=== PATIENT | male | born 1940 | race Caucasian/White ===

== ENCOUNTER 2016-12-14 15:43 | Outpatient (CLI) | payer MEDICARE ==
--- NOTE | 2016-12-14 17:21 | RAD ---
RIGHT ANKLE 3 VIEWS: Date: 12/14/16 HISTORY: Swelling right ankle. FINDINGS/IMPRESSION: No acute fracture, dislocation, or bony destruction seen. Degenerative changes present. A well corti cated density adjacent to the lateral malleolus may represent an old injury. POS: [facility]
== END 2016-12-14 15:44 | disposition home or self-care (01) ==
LOC: MADLABBHPM 15:43
PROVIDERS: ATTEND Family Medicine
DX: M25.571 Pain in right ankle and joints of right foot (principal)
CPT/HCPCS: 36415; 84550; 85652

== ENCOUNTER 2016-12-18 08:07 | Outpatient (CLI) | payer MEDICARE ==
[2016-12-18 09:07] LABS: ALT (SGPT) 22 U/L (0-55); AST (SGOT) 25 U/L (5-34); Albumin 3.8 g/dL (3.4-4.8); Alkaline Phosphatase 64 U/L (40-150); Anion Gap 14 mmol/L (10-20); BUN (Urea Nitrogen) 21 mg/dL (8.4-25.7); Bilirubin, Direct 0.2 mg/dL (0.1-0.3); Bilirubin, Total 0.4 mg/dL (0.2-1.2); Calc. Creatinine Clearance 0 mL/min (70-130); Calcium 9.1 mg/dL (7.8-10.44); Carbon Dioxide 21 mmol/L (23-31); Cardiac Risk 2.5 (Less than 4.5); Chloride 107 mmol/L (98-107); Cholesterol 126 mg/dL (< 200 Desired); Estimated GFR-MDRD 89; Glucose 88 mg/dL (83-110); HDL Cholesterol 51 mg/dL (>60 Neg Risk); LDL Cholesterol, Calculated 69 mg/dL; Protein, Total 6.6 g/dL (5.8-8.1); Sodium 138 mmol/L (136-145); Triglycerides 30 mg/dL (Less than 150)
[2016-12-18 09:40] LABS: #Monocytes 1.7 thou/uL (0.11-0.59); #Neutrophils 8.1 thou/uL (1.40-6.50); %Basophils 1.3 % (0.0-1.0); %Eosinophils 2.4 % (0.0-10.0); %Lymphocytes 27.9 % (21.0-51.0); %Monocytes 12.1 % (0.0-10.0); %Neutrophils 86.3 % (42.0-75.0); Hemoglobin 14.9 g/dL (14.0-18.0); Mean Corpuscular HGB CONC 33.4 g/dL (32.0-36.0); Mean Corpuscular Hemoglobin 34.1 pg (27.0-31.0); Mean Platelet Volume 8.3 fL (7.4-10.4); Platelet Count 303 thou/uL (130-400); RBC Distribution Width 12.1 % (11.5-14.5); Red Blood Cell (RBC) Count 4.38 mill/uL (4.70-6.10); White Blood Cell (WBC) Count 14.3 thou/uL (4.8-10.8)
[2016-12-18 09:41] LABS: #Basophils 0.2 thou/uL (0.0-0.2); #Eosinphils 0.3 thou/uL (0.0-0.7); PLT Morphology Comment Appears Adequate; RBC Morphology Normal
== END 2016-12-18 08:08 ==
LOC: MADLABBHPM 08:07
PROVIDERS: ATTEND Family Medicine
DX: E78.5 Hyperlipidemia, unspecified (principal); I42.9 Cardiomyopathy, unspecified
CPT/HCPCS: 36415; 80048; 80061; 80076; 85025

== ENCOUNTER 2017-01-04 09:44 | Emergency (ER) | payer MEDICARE ==
--- NOTE | 2017-01-04 10:29 | RAD ---
TWO VIEWS OF THE CHEST: COMPARISON: 02/05/2012 HISTORY: Cough. FINDINGS: Two views of the chest show a normal sized cardiomediastinal silhouette with atherosclerotic calcifi cations in the aorta. There is a new pacemaker generator. Leads are seen in the right atrium and v entricle. There is no evidence of consolidation, mass, or pleural effusion. Degenerative changes a re seen in the spine. IMPRESSION: No evidence of acute cardiopulmonary disease. POS: [facility]
[2017-01-04] MEDS ORDERED: Dexamethasone 4 MG TAB ONE (10:30)
== END 2017-01-04 10:38 | disposition home or self-care (01) ==
LOC: MADERS 09:44
DX: J40 Bronchitis, not specified as acute or chronic (principal); I42.9 Cardiomyopathy, unspecified
CPT/HCPCS: 71020; J8540

== ENCOUNTER 2017-02-11 16:04 | Emergency (ER) | payer MEDICARE ==
[2017-02-11] MEDS ORDERED: Naproxen 500 MG TAB ONE (17:09)
--- NOTE | 2017-02-11 17:54 | RAD ---
RIGHT ELBOW FOUR VIEWS: 02/11/17 HISTORY: Elbow pain. 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 There is radiocarpal joint space narrowing. There is spur formation of the olecranon. There is no joint effusion. IMPRESSION: Severe arthritic changes of the elbow. POS: [facility]
[2017-02-11] MEDS ORDERED: Acetaminophen/Codeine 30-300mg Tablet ONE (18:52)
== END 2017-02-11 18:55 | disposition home or self-care (01) ==
LOC: MADERS 16:04
DX: M77.9 Enthesopathy, unspecified (principal); I42.9 Cardiomyopathy, unspecified; I25.2 Old myocardial infarction; Z87.442 Personal history of urinary calculi

== ENCOUNTER 2017-03-22 08:04 | Outpatient (CLI) | payer MEDICARE ==
[2017-03-22 09:19] LABS: ALT (SGPT) 18 U/L (8-55); AST (SGOT) 30 U/L (5-34); Albumin 3.9 g/dL (3.4-4.8); Alkaline Phosphatase 68 U/L (40-150); Anion Gap 12 mmol/L (10-20); BUN (Urea Nitrogen) 23 mg/dL (8.4-25.7); Bilirubin, Direct 0.3 mg/dL (0.1-0.3); Bilirubin, Total 0.6 mg/dL (0.2-1.2); Calc. Creatinine Clearance 0 mL/min (70-130); Calcium 8.9 mg/dL (7.8-10.44); Carbon Dioxide 21 mmol/L (23-31); Cardiac Risk 2.7 (Less than 4.5); Chloride 109 mmol/L (98-107); Cholesterol 105 mg/dl (< 200 Desired); Estimated GFR-MDRD 67; Glucose 101 mg/dL (83-110); HDL Cholesterol 39 mg/dL (>60 Neg Risk); LDL Cholesterol, Calculated 58 mg/dL; Potassium 4.2 mmol/L (3.5-5.1); Protein, Total 7.2 g/dL (5.8-8.1); Sodium 138 mmol/L (136-145); Triglycerides 42 mg/dL (Less than 150)
[2017-03-22 10:46] LABS: #Basophils 0.2 thou/uL (0.0-0.2); #Eosinphils 0.7 thou/uL (0.0-0.7); #Lymphocytes 2.7 thou/uL (1.20-3.40); #Monocytes 1.1 thou/uL (0.11-0.59); #Neutrophils 3.8 thou/uL (1.40-6.50); %Basophils 2.5 % (0.0-1.0); %Eosinophils 8.6 % (0.0-10.0); %Lymphocytes 32.1 % (21.0-51.0); %Monocytes 12.6 % (0.0-10.0); %Neutrophils 44.2 % (42.0-75.0); Anisocytosis SLIGHT = 6-15 cells (100X) (0-5/hpf); Hemoglobin 15.5 g/dL (14.0-18.0); MDiff Complete? YES; Mean Corpuscular HGB CONC 35.7 g/dL (32.0-36.0); Mean Corpuscular Hemoglobin 36.6 pg (27.0-31.0); Mean Corpuscular Volume 102.5 fl (80.0-94.0); Mean Platelet Volume 8.5 fL (7.4-10.4); PLT Morphology Comment Appears Adequate; Platelet Count 237 thou/uL (130-400); RBC Distribution Width 12.7 % (11.5-14.5); Red Blood Cell (RBC) Count 4.24 mill/uL (4.70-6.10); White Blood Cell (WBC) Count 8.5 thou/uL (4.8-10.8)
== END 2017-03-22 08:05 ==
LOC: MADLABBHPM 08:04
PROVIDERS: ATTEND Family Medicine
DX: I42.9 Cardiomyopathy, unspecified (principal)
CPT/HCPCS: 36415; 80048; 80061; 80076; 85025

== ENCOUNTER 2017-06-22 07:51 | Outpatient (CLI) | payer MEDICARE ==
[2017-06-22 09:07] LABS: ALT (SGPT) 19 U/L (8-55); AST (SGOT) 28 U/L (5-34); Albumin 3.9 g/dL (3.4-4.8); Alkaline Phosphatase 70 U/L (40-150); Anion Gap 12 mmol/L (10-20); BUN (Urea Nitrogen) 22 mg/dL (8.4-25.7); Bilirubin, Direct 0.3 mg/dL (0.1-0.3); Bilirubin, Total 0.6 mg/dL (0.2-1.2); Calc. Creatinine Clearance 0 mL/min (70-130); Calcium 9.2 mg/dL (7.8-10.44); Carbon Dioxide 21 mmol/L (23-31); Cardiac Risk 2.7 (Less than 4.5); Chloride 110 mmol/L (98-107); Cholesterol 105 mg/dl (< 200 Desired); Estimated GFR-MDRD 73; Glucose 101 mg/dL (83-110); HDL Cholesterol 39 mg/dL (>60 Neg Risk); LDL Cholesterol, Calculated 59 mg/dL; Potassium 4.2 mmol/L (3.5-5.1); Protein, Total 7.2 g/dL (5.8-8.1); Sodium 139 mmol/L (136-145); Triglycerides 37 mg/dL (Less than 150)
[2017-06-22 11:07] LABS: #Basophils 0.2 thou/uL (0.0-0.2); #Eosinphils 0.7 thou/uL (0.0-0.7); #Monocytes 1.4 thou/uL (0.11-0.59); #Neutrophils 4.7 thou/uL (1.40-6.50); %Basophils 1.9 % (0.0-1.0); %Eosinophils 7.3 % (0.0-10.0); %Lymphocytes 29.8 % (21.0-51.0); %Monocytes 14.1 % (0.0-10.0); %Neutrophils 46.9 % (42.0-75.0); Hemoglobin 14.9 g/dL (14.0-18.0); Mean Corpuscular HGB CONC 33.5 g/dL (32.0-36.0); Mean Corpuscular Hemoglobin 34.2 pg (27.0-31.0); Mean Corpuscular Volume 101.8 fl (80.0-94.0); Mean Platelet Volume 9.9 fL (7.4-10.4); Platelet Count 232 thou/uL (130-400); RBC Distribution Width 11.7 % (11.5-14.5); Red Blood Cell (RBC) Count 4.36 mill/uL (4.70-6.10); White Blood Cell (WBC) Count 10.1 thou/uL (4.8-10.8)
[2017-06-22 12:22] LABS: Manual Diff?? NO
== END 2017-06-22 07:52 | disposition home or self-care (01) ==
LOC: MADLABBHPM 07:51
PROVIDERS: ATTEND Family Medicine
DX: I42.9 Cardiomyopathy, unspecified (principal)
CPT/HCPCS: 36415; 80048; 80061; 80076; 85025

== ENCOUNTER 2017-09-22 09:38 | Outpatient (CLI) | payer MEDICARE ==
--- NOTE | 2017-09-22 10:09 | RAD ---
PA AND LATERAL CHEST: History: Cough. FINDINGS: Comparison made with 01-04-17. There are changes of median sternotomy. The left sided AICD is present. The lungs are expanded withou t focal areas of consolidation, pneumothorax, or pleural effusions. Mild chronic changes are stable. IMPRESSION: No radiographic evidence of acute cardiopulmonary process. POS: [facility]
== END 2017-09-22 09:39 | disposition home or self-care (01) ==
LOC: MADRAD 09:38
PROVIDERS: ATTEND Family Medicine
DX: R05 Cough (principal)
CPT/HCPCS: 71020

== ENCOUNTER 2017-11-23 16:45 | Outpatient (CLI) | payer MEDICARE ==
--- NOTE | 2017-11-23 18:42 | RAD ---
TWO VIEW CHEST: 11/23/17 HISTORY: Cough and fever. COMPARISON: 09/22/17. There is new infiltrate in the right mid lung probably posterior segment right upper lobe. Left lung appears clear. Heart size is within normal range. Postop sternotomy change with AICD leads again noted. IMPRESSION: New infiltrate in the right mid lung field. Close followup recommended. POS: [facility]
== END 2017-11-23 16:46 | disposition home or self-care (01) ==
LOC: MADRAD 16:45
PROVIDERS: ATTEND Family Medicine
DX: J18.9 Pneumonia, unspecified organism (principal); R91.8 Other nonspecific abnormal finding of lung field
CPT/HCPCS: 71046

== ENCOUNTER 2017-12-27 08:15 | Outpatient (CLI) | payer MEDICARE ==
--- NOTE | 2017-12-27 09:29 | RAD ---
CHEST 2 VIEWS: HISTORY: Pneumonia. Followup. COMPARISON: 11/23/17. FINDINGS: Cardiac silhouette and pulmonary vasculature are unremarkable. Lungs remain hyperinflated. Mediasti num is midline with postoperative changes and a multilead left subclavian cardiac electronic device. Infiltrate within the right mid chest has nearly completely resolved since the prior exam. No new i nfiltrates. IMPRESSION: Near-complete interval resolution of right lung infiltrate. No new abnormalities. POS: [facility]
[2017-12-27 10:50] LABS: ALT (SGPT) 17 U/L (8-55); AST (SGOT) 32 U/L (5-34); Alkaline Phosphatase 62 U/L (40-150); Anion Gap 15 mmol/L (10-20); BUN (Urea Nitrogen) 18 mg/dL (8.4-25.7); Bilirubin, Direct 0.3 mg/dL (0.1-0.3); Bilirubin, Total 0.6 mg/dL (0.2-1.2); Calc. Creatinine Clearance 0 mL/min (70-130); Calcium 9.4 mg/dL (7.8-10.44); Carbon Dioxide 20 mmol/L (23-31); Cardiac Risk 2.9 (Less than 4.5); Chloride 110 mmol/L (98-107); Cholesterol 114 mg/dl (< 200 Desired); Estimated GFR-MDRD 68; Glucose 88 mg/dL (83-110); HDL Cholesterol 40 mg/dL (>60 Neg Risk); LDL Cholesterol, Calculated 67 mg/dL; Potassium 4.3 mmol/L (3.5-5.1); Protein, Total 7.3 g/dL (5.8-8.1); Sodium 141 mmol/L (136-145); Triglycerides 37 mg/dL (Less than 150)
== END 2017-12-27 08:16 | disposition home or self-care (01) ==
LOC: MADLABSP 08:15 → MADLABBHPM 08:16
PROVIDERS: ATTEND Family Medicine
DX: J18.9 Pneumonia, unspecified organism (principal); R91.8 Other nonspecific abnormal finding of lung field; I42.9 Cardiomyopathy, unspecified; E78.5 Hyperlipidemia, unspecified
CPT/HCPCS: 71046; 80048; 80061; 80076; 84443

== ENCOUNTER 2018-03-31 07:54 | Outpatient (CLI) | payer MEDICARE ==
[2018-03-31 09:19] LABS: ALT (SGPT) 17 U/L (8-55); AST (SGOT) 26 U/L (5-34); Albumin 4.2 g/dL (3.4-4.8); Alkaline Phosphatase 75 U/L (40-150); Anion Gap 14 mmol/L (10-20); BUN (Urea Nitrogen) 21 mg/dL (8.4-25.7); Bilirubin, Direct 0.3 mg/dL (0.1-0.3); Bilirubin, Total 0.6 mg/dL (0.2-1.2); Calc. Creatinine Clearance 0 mL/min (70-130); Calcium 9.2 mg/dL (7.8-10.44); Carbon Dioxide 21 mmol/L (23-31); Cardiac Risk 3.1 (Less than 4.5); Chloride 112 mmol/L (98-107); Cholesterol 114 mg/dl (< 200 Desired); Estimated GFR-MDRD 71; Glucose 100 mg/dL (83-110); HDL Cholesterol 37 mg/dL (>60 Neg Risk); LDL Cholesterol, Calculated 64 mg/dL; Potassium 4.5 mmol/L (3.5-5.1); Protein, Total 7.1 g/dL (5.8-8.1); Sodium 142 mmol/L (136-145); Triglycerides 66 mg/dL (Less than 150)
== END 2018-03-31 07:55 ==
LOC: MADLABBHPM 07:54
PROVIDERS: ATTEND Family Medicine
DX: I25.10 Atherosclerotic heart disease of native coronary artery without angina pectoris (principal)
CPT/HCPCS: 36415; 80048; 80061; 80076

== ENCOUNTER 2019-06-04 03:34 | Emergency (ER) | payer MEDICARE ==
[2019-06-04] MEDS ORDERED: Ondansetron PF 4 MG/2 ML Vial ONE (03:40)
[2019-06-04 04:12] LABS: Band 1 % (5-11); Eosinophils 1 % (0-10); Hemoglobin 15.9 g/dL (14.0-18.0); Lymphocytes 2 % (21-51); MDiff Complete? YES; Mean Corpuscular HGB CONC 32.6 g/dL (32.0-36.0); Mean Corpuscular Hemoglobin 33.2 pg (27.0-31.0); Mean Platelet Volume 7.6 fL (7.4-10.4); Monocytes 4 % (0-10); Neutrophil 90 % (42-75); Platelet Count 255 thou/uL (130-400); Platelet Morphology Comment Appears Adequate; RBC Distribution Width 12.4 % (11.5-14.5); RBC Morphology Normal; Reactive Lymphocytes 2 % (0-10); Red Blood Cell (RBC) Count 4.78 mill/uL (4.70-6.10); White Blood Cell (WBC) Count 22.5 thou/uL (4.8-10.8)
[2019-06-04 04:17] LABS: ALT (SGPT) 24 U/L (8-55); AST (SGOT) 30 U/L (5-34); Albumin 4.6 g/dL (3.4-4.8); Alkaline Phosphatase 74 U/L (40-150); Anion Gap 17 mmol/L (10-20); BUN (Urea Nitrogen) 33 mg/dL (8.4-25.7); Bilirubin, Total 0.9 mg/dL (0.2-1.2); CK (CPK) 168 U/L (30-200); Calc. Creatinine Clearance 0 mL/min (70-130); Calcium 9.4 mg/dL (7.8-10.44); Carbon Dioxide 18 mmol/L (23-31); Chloride 108 mmol/L (98-107); Estimated GFR-MDRD 47; Globulin 3.5 g/dL (2.4-3.5); Glucose 122 mg/dL (83-110); Lipase 119 U/L (8-78); Potassium 4.3 mmol/L (3.5-5.1); Protein, Total 8.1 g/dL (5.8-8.1); Sodium 139 mmol/L (136-145)
[2019-06-04] MEDS ORDERED: cefTRIAXone\\ROCEPHIN 1 GM VIAL ONE (05:53)
[2019-06-04] MEDS ORDERED: Sodium Chloride 0.9% 100 ML ONE (05:54)
--- NOTE | 2019-06-04 06:35 | CT ---
PRELIMINARY REPORT/[facility]/EMERGENCY AFTER HOURS PROCEDURE EXAM: CT Abdomen and Pelvis Without Contrast EXAM DATE/TIME: 06/04/2019 5:05 AM CLINICAL HISTORY: 78 years old, male; Nausea and vomiting TECHNIQUE: Imaging protocol: Axial computed tomography images of the abdomen and pelvis without contrast. Coron al and sagittal reformatted images were created and reviewed. COMPARISON: No relevant prior studies available. FINDINGS: Tubes, catheters and devices: A defibrillator device is present, and its leads are in appropriate pos ition. Lungs: There is subpleural atelectasis of the dependent portions of the lungs. Liver: The liver is within normal limits for this noncontrast study. Gallbladder and bile ducts: There has been a cholecystectomy. Pancreas: The pancreas appears normal. No ductal dilatation. Spleen: There is splenosis. Adrenals: The adrenal glands are normal. Kidneys and ureters: There is a simple cyst in the right kidney. The left kidney is normal. There is no evidence of hydronephrosis. Stomach and bowel: The stomach is normal. The duodenum is unremarkable. There is mildly prominent int raluminal fluid noted within the stomach and small bowel possibly related to gastroenteritis. Appendix: No evidence of appendicitis. Intraperitoneal space: Normal. No free air. No significant fluid collection. Vasculature: Normal. No abdominal aortic aneurysm. Lymph nodes: Normal. No enlarged lymph nodes. Bladder: The bladder is normal. The bladder is normal. Reproductive: Right testicle is noted in the right inguinal canal. Bones/joints: There are sternal wires consistent with previous sternotomy incision. The lumbar spine demonstrates moderate degenerative changes at multiple levels. There are healed pubic ramus fractures . Posterior decompression of the lumbar spine is present. Soft tissues: There are clips within the left inguinal canal. IMPRESSION: There is mildly prominent intraluminal fluid noted within the stomach and small bowel possibly relate d to gastroenteritis. Correlate clinically. Thank you for allowing us to participate in the care of your patient. Dictated and Authenticated by: Hugo Macario MD 06/04/2019 6:32 AM Central Time ([place] & [place]) FINAL REPORT CT ABDOMEN AND PELVIS WITHOUT IV CONTRAST: INDICATIONS: Nausea and vomiting. FINDINGS: There is mild bibasilar atelectasis. The lack of IV contrast limits evaluation for acute pathology and of the solid organs of the abdomen. There are a couple stones within the gallbladder. There are multiple splenules within the left upper quadrant, which are stable to comparison, dated . There is a 2.1 cm cyst involving the lower pole of the right kidney. 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 No renal or ureteral calculus is noted. Unopacified large and small bowel are of normal caliber. No free fluid or enlarged lymph nodes are evident. There are scattered degenerative and osteoarthritic changes. There is mild dextroscoliosis of the donell mbar spine. IMPRESSION: 1. No definite acute CT abnormality. 2. Cholelithiasis. 3. Right renal cyst. 4. No renal or ureteral calculus. ADDENDUM: I agree with the preliminary report provided by [facility]. There is report of some fluid distention of the stomach and some loops of small bowel, which can be s een in normal patients; however, with the patient's history of nausea and vomiting, this can also be seen with very mild gastroenteritis. Would recommend correlation with the patient's clinical examina tion. Otherwise, stable findings, as detailed in my report performed earlier. CODE QA POS: [facility]
--- NOTE | 2019-06-04 07:54 | RAD ---
PORTABLE CHEST ONE VIEW: 06/04/2019 4:01 a.m. HISTORY: Chest pain. COMPARISON: 12/27/2017 FINDINGS: Changes of median sternotomy are again seen. Left-sided AICD remains in place. Heart size is normal . No focal areas of consolidation, pneumothoraces, or pleural effusions are seen. IMPRESSION: No radiographic evidence of acute cardiopulmonary process. POS: [facility]
== END 2019-06-04 06:15 | disposition short-term general hospital (02) ==
LOC: MADERS 03:34
DX: R11.2 Nausea with vomiting, unspecified (principal); M25.512 Pain in left shoulder; I25.2 Old myocardial infarction; K21.9 Gastro-esophageal reflux disease without esophagitis; M19.90 Unspecified osteoarthritis, unspecified site; Z87.891 Personal history of nicotine dependence; Z79.891 Long term (current) use of opiate analgesic; Z79.899 Other long term (current) drug therapy; Z79.01 Long term (current) use of anticoagulants
CPT/HCPCS: 36415; 71045; 74176; 80053; 82550; 83690; 84484; 85025; 87040; 93005; 94760; 96374; 96375; J0696; J2405; J3490

== ENCOUNTER 2019-10-24 10:09 | Emergency (ER) | payer MEDICARE ==
[2019-10-24 10:46] LABS: INR-International Normal Ratio 1.3; Prothrombin Time 16.4 SEC (12.0-14.7)
[2019-10-24 10:56] LABS: ALT (SGPT) 16 U/L (8-55); AST (SGOT) 24 U/L (5-34); Albumin 4.1 g/dL (3.4-4.8); Alkaline Phosphatase 54 U/L (40-110); Anion Gap 14 mmol/L (10-20); BUN (Urea Nitrogen) 24 mg/dL (8.4-25.7); Bilirubin, Total 0.5 mg/dL (0.2-1.2); Calc. Creatinine Clearance 0 mL/min (70-130); Carbon Dioxide 19 mmol/L (23-31); Chloride 111 mmol/L (98-107); Estimated GFR-MDRD 60; Globulin 2.8 g/dL (2.4-3.5); Glucose 93 mg/dL (83-110); Protein, Total 6.9 g/dL (5.8-8.1); Sodium 140 mmol/L (136-145)
[2019-10-24 10:58] LABS: #Basophils 0.2 thou/uL (0.0-0.2); #Eosinphils 0.9 thou/uL (0.0-0.7); #Lymphocytes 3.9 thou/uL (1.20-3.40); #Monocytes 1.5 thou/uL (0.11-0.59); #Neutrophils 8.2 thou/uL (1.40-6.50); %Basophils 1.4 % (0.0-1.0); %Eosinophils 6.1 % (0.0-10.0); %Lymphocytes 26.6 % (21.0-51.0); %Monocytes 10.2 % (0.0-10.0); %Neutrophils 55.7 % (42.0-75.0); Hemoglobin 9.7 g/dL (14.0-18.0); Mean Corpuscular HGB CONC 33.6 g/dL (32.0-36.0); Mean Corpuscular Hemoglobin 36.5 pg (27.0-31.0); Mean Corpuscular Volume 108.7 fL (78.0-98.0); Mean Platelet Volume 8.5 fL (7.4-10.4); Platelet Count 277 thou/uL (130-400); RBC Distribution Width 12.7 % (11.5-14.5); Red Blood Cell (RBC) Count 2.65 mill/uL (4.70-6.10); White Blood Cell (WBC) Count 14.7 thou/uL (4.8-10.8)
[2019-10-24 10:59] LABS: MDiff Complete? YES; Macrocytosis SLIGHT = 6-15 cells (100X) (0-5/hpf); Polychromasia SLIGHT = 2-3 cells (100X) (0-2/hpf)
[2019-10-24] MEDS ORDERED: Pantoprazole 40 MG VIAL ONE (11:59)
== END 2019-10-24 13:05 | disposition home or self-care (01) ==
LOC: MADERS 10:09
DX: K92.1 Melena (principal); I48.91 Unspecified atrial fibrillation; E78.5 Hyperlipidemia, unspecified; E78.00 Pure hypercholesterolemia, unspecified; I25.2 Old myocardial infarction; K21.9 Gastro-esophageal reflux disease without esophagitis; G51.0 Bell's palsy; F32.9 Major depressive disorder, single episode, unspecified; Z87.442 Personal history of urinary calculi; Z79.01 Long term (current) use of anticoagulants; Z79.899 Other long term (current) drug therapy; Z79.82 Long term (current) use of aspirin
CPT/HCPCS: 80053; 82274; 85025; 85610; 85730; 96374; C9113

== ENCOUNTER 2020-01-17 11:13 | Outpatient (CLI) | payer MEDICARE ==
--- NOTE | 2020-01-17 11:38 | RAD ---
LEFT HIP 2 VIEWS: HISTORY: Chronic left hip pain. FINDINGS: Evidence for healed bilateral ischiopubic rami fractures. Bone demineralization. Arthrosis changes of the left hip joint and SI joint. IMPRESSION: No acute fracture or dislocation. Old healed pelvic fractures. Left hip joint arthrosis. POS: [facility]
== END 2020-01-17 11:14 | disposition home or self-care (01) ==
LOC: MADRAD 11:13
PROVIDERS: ATTEND Family Medicine
DX: M25.552 Pain in left hip (principal); M16.12 Unilateral primary osteoarthritis, left hip

== ENCOUNTER 2020-03-28 10:08 | Outpatient (CLI) | payer MEDICARE ==
--- NOTE | 2020-03-28 13:00 | RAD ---
LEFT HIP 2 VIEWS: HISTORY: Fall with pain. COMPARISON: Left hip films 01/17/2020. FINDINGS: Degenerative changes of the left hip again noted. Deformity of the left pelvis is again noted and ap pears stable from old fractures. No evidence of acute fracture identified. No evidence of interval change. IMPRESSION: No acute finding. POS: [facility]
== END 2020-03-28 10:09 | disposition home or self-care (01) ==
LOC: MADRAD 10:08
PROVIDERS: ATTEND Family Medicine
DX: M25.552 Pain in left hip (principal); W19.XXXA Unspecified fall, initial encounter

== ENCOUNTER 2020-07-17 16:45 | Outpatient (CLI) | payer MEDICARE ==
--- NOTE | 2020-07-17 17:15 | RAD ---
XR Chest Pa Lat STANDARD HISTORY: Viral syndrome COMPARISON: 12/08/2019 FINDINGS: The heart size is normal. Changes of median sternotomy and left-sided AICD again seen. The aorta is tortuous. The lungs are well expanded without focal areas of consolidation, pneumothorax or pleural effusions. IMPRESSION: No radiographic evidence of acute cardiopulmonary process.
== END 2020-07-17 16:46 | disposition home or self-care (01) ==
LOC: MADRAD 16:45
PROVIDERS: ATTEND Family Medicine
DX: B34.9 Viral infection, unspecified (principal)
CPT/HCPCS: 71046

== ENCOUNTER 2020-11-04 11:32 | Outpatient (CLI) | payer MEDICARE ==
--- NOTE | 2020-11-04 12:40 | RAD ---
Right ankle 3 views: 11/04/2020 COMPARISON: 12/14/2016 HISTORY: Pain without trauma FINDINGS: There is significant tibiotalar joint space narrowing with subchondral sclerosis and anteri or osteophyte formation, progressed since the 2017 exam. Posterior atherosclerotic calcification is noted. No acute fracture or dislocation. IMPRESSION: Prominent degenerative change involving the tibiotalar articulation/right ankle joint, pr ogressed since the 2017 exam. No acute fracture or dislocation is apparent.
--- NOTE | 2020-11-04 13:01 | RAD ---
Exam: XR Foot Rt 3 View STANDARD HISTORY: Right foot pain without trauma. COMPARISON: None FINDINGS: There is mild metatarsus primus varus and hallux valgus. 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 No fracture or dislocation is identified. There are degenerative changes seen at the tibiotalar joint with joint space narrowing and subchondral sclerosis. No fracture, dislocation, or other osseous abnormality is seen. Vascular calcifications are seen post erior to the ankle. IMPRESSION: 1. Prominent degenerative changes at the tibiotalar joint and involving the first metatarsal phalange al joint. 2. No acute osseous abnormality appreciated.
== END 2020-11-04 11:33 | disposition home or self-care (01) ==
LOC: MADLAB 11:32
PROVIDERS: ATTEND Family Medicine
DX: M79.671 Pain in right foot (principal); M19.071 Primary osteoarthritis, right ankle and foot

== ENCOUNTER 2021-05-16 08:25 | Outpatient (CLI) | payer MEDICARE ==
[2021-05-16 09:37] LABS: Hemoglobin 10.8 g/dL (14.0-18.0); Mean Corpuscular HGB CONC 29.5 g/dL (32.0-36.0); Mean Corpuscular Hemoglobin 26.1 pg (27.0-31.0); Mean Corpuscular Volume 88.6 fL (78.0-98.0); Mean Platelet Volume 7.8 fL (7.4-10.4); Platelet Count 369 thou/uL (130-400); RBC Distribution Width 17.8 % (11.5-14.5); Red Blood Cell (RBC) Count 4.13 mill/uL (4.70-6.10); White Blood Cell (WBC) Count 9.8 thou/uL (4.8-10.8)
[2021-05-16 09:56] LABS: ALT (SGPT) 17 U/L (8-55); AST (SGOT) 27 U/L (5-34); Albumin 4.1 g/dL (3.4-4.8); Alkaline Phosphatase 67 U/L (40-110); Anion Gap 16 mmol/L (10-20); BUN (Urea Nitrogen) 23 mg/dL (8.4-25.7); Bilirubin, Total 0.4 mg/dL (0.2-1.2); Calc. Creatinine Clearance 0 mL/min (70-130); Calcium 9.3 mg/dL (7.8-10.44); Carbon Dioxide 16 mmol/L (23-31); Cardiac Risk 3.3 (Less than 4.5); Chloride 111 mmol/L (98-107); Cholesterol 97 mg/dl (< 200 Desired); Critical Call Chemistry NNP; Globulin 3.4 g/dL (2.4-3.5); Glucose 100 mg/dL (83-110); HDL Cholesterol 29 mg/dL (>60 Neg Risk); LDL Cholesterol, Calculated 58 mg/dL; Potassium 4.4 mmol/L (3.5-5.1); Protein, Total 7.5 g/dL (5.8-8.1); Sodium 139 mmol/L (136-145); Triglycerides 50 mg/dL (Less than 150)
[2021-05-16 10:02] LABS: Manual Diff?? YES
[2021-05-16 10:04] LABS: Anisocytosis SLIGHT = 6-15 cells (100X) (0-5/hpf); Band 1 % (5-11); Eosinophils 5 % (0-10); Lymphocytes 35 % (21-51); MDiff Complete? YES; Monocytes 14 % (0-10); Neutrophil 45 % (42-75)
[2021-05-16 10:05] LABS: Platelet Morphology Comment Appears Adequate
== END 2021-05-16 08:26 | disposition home or self-care (01) ==
LOC: MADLAB 08:25
PROVIDERS: ATTEND Family Medicine
DX: E78.5 Hyperlipidemia, unspecified (principal); E03.9 Hypothyroidism, unspecified; N18.2 Chronic kidney disease, stage 2 (mild); D63.1 Anemia in chronic kidney disease
CPT/HCPCS: 36415; 80053; 80061; 84443; 85025

== ENCOUNTER 2021-08-06 12:46 | Outpatient (CLI) | payer MEDICARE | END 2021-08-06 12:47 | disposition home or self-care (01) | LOC: MADRAD 12:46 | PROVIDERS: ATTEND Internal Medicine | DX: D62 Acute posthemorrhagic anemia (principal) | CPT/HCPCS: 74018 ==

== ENCOUNTER 2021-12-16 11:19 | Outpatient (CLI) | payer MEDICARE | END 2021-12-16 11:20 | disposition home or self-care (01) | LOC: MADRAD 11:19 | PROVIDERS: ATTEND Family Medicine | DX: M54.2 Cervicalgia (principal); M47.812 Spondylosis without myelopathy or radiculopathy, cervical region | CPT/HCPCS: 72050 ==

== ENCOUNTER 2022-06-15 08:22 | Outpatient (CLI) | payer MEDICARE ==
[2022-06-15 09:03] LABS: #Basophils 0.2 thou/uL (0.0-0.2); #Eosinphils 0.6 thou/uL (0.0-0.7); #Lymphocytes 2.6 thou/uL (1.20-3.40); #Monocytes 1.2 thou/uL (0.11-0.59); #Neutrophils 5.3 thou/uL (1.40-6.50); %Lymphocytes 26.2 % (21.0-51.0); %Monocytes 12.2 % (0.0-10.0); %Neutrophils 53.6 % (42.0-75.0); Hemoglobin 14.9 g/dL (14.0-18.0); Mean Corpuscular Hemoglobin 34.6 pg (27.0-31.0); Mean Corpuscular Volume 108.1 fL (78.0-98.0); Platelet Count 232 thou/uL (130-400); RBC Distribution Width 12.6 % (11.5-14.5); White Blood Cell (WBC) Count 9.9 thou/uL (4.8-10.8)
[2022-06-15 09:11] LABS: ALT (SGPT) 19 U/L (8-55); AST (SGOT) 25 U/L (5-34); Albumin 4.2 g/dL (3.4-4.8); Alkaline Phosphatase 72 U/L (40-110); Anion Gap 14 mmol/L (10-20); BUN (Urea Nitrogen) 25 mg/dL (8.4-25.7); Bilirubin, Total 0.7 mg/dL (0.2-1.2); Calc. Creatinine Clearance 0 mL/min (70-130); Calcium 9.4 mg/dL (7.8-10.44); Carbon Dioxide 16 mmol/L (23-31); Cardiac Risk 3.7 (Less than 4.5); Chloride 112 mmol/L (98-107); Cholesterol 145 mg/dl (< 200 Desired); Estimated GFR 50; Globulin 3.2 g/dL (2.4-3.5); Glucose 96 mg/dL (83-110); HDL Cholesterol 39 mg/dL (>60 Neg Risk); LDL Cholesterol, Calculated 90 mg/dL; Potassium 4.2 mmol/L (3.5-5.1); Protein, Total 7.4 g/dL (5.8-8.1); Sodium 138 mmol/L (136-145); Triglycerides 80 mg/dL (Less than 150)
[2022-06-15 09:15] LABS: Platelet Morphology Comment Appears Adequate
[2022-06-15 09:18] LABS: Anisocytosis SLIGHT = 6-15 cells (100X) (0-5/hpf); Macrocytosis MODERATE=16-30 cells (100X) (0-5/hpf)
== END 2022-06-15 08:23 | disposition home or self-care (01) ==
LOC: MADLAB 08:22
PROVIDERS: ATTEND Family Medicine
DX: I42.9 Cardiomyopathy, unspecified (principal); E78.5 Hyperlipidemia, unspecified; N18.2 Chronic kidney disease, stage 2 (mild)
CPT/HCPCS: 36415; 80053; 80061; 85025

== ENCOUNTER 2022-12-17 09:43 | Outpatient (CLI) | payer MEDICARE | END 2022-12-17 09:44 | disposition home or self-care (01) | LOC: MADRAD 09:43 | PROVIDERS: ATTEND Internal Medicine | DX: I25.10 Atherosclerotic heart disease of native coronary artery without angina pectoris (principal) | CPT/HCPCS: 71046 ==

== ENCOUNTER 2024-05-10 15:53 | Inpatient (IN) | payer MEDICARE ==
[2024-05-10 16:50] VITALS: BMI 21.9
[2024-05-10] MEDS: Micafungin 100 MG in Sodium Chloride 0.9% 100 ML IVPB SCH (18:40)
[2024-05-10] MEDS: Pantoprazole DR 40 MG TAB PO SCH (20:06)
[2024-05-10] MEDS: Amiodarone 200 MG TAB PO SCH (20:06)
[2024-05-10] MEDS: Sucralfate 1 GM TAB PO SCH (20:06)
[2024-05-10] MEDS: Meropenem 1 GM in Sodium Chloride 0.9% 100 ML IVPB SCH (21:16)
[2024-05-10] MEDS ORDERED: Meropenem 1 GM VIAL IVPB SCH (22:00)
[2024-05-11] MEDS: Levothyroxine Sodium 125 MCG TAB PO SCH (05:07)
[2024-05-11 05:30] LABS: Anisocytosis SLIGHT = 6-15 cells (100X) (0-5/hpf); Band 1 % (5-11); Eosinophils 2 % (0-10); Hematocrit 33.1 % (42.0-52.0); Hemoglobin 9.7 g/dL (14.0-18.0); Lymphocytes 22 % (21-51); MDiff Complete? YES; Macrocytosis SLIGHT = 6-15 cells (100X) (0-5/hpf); Mean Corpuscular HGB CONC 29.3 g/dL (32.0-36.0); Mean Corpuscular Hemoglobin 31.1 pg (27.0-31.0); Mean Corpuscular Volume 105.9 fl (78.0-98.0); Mean Platelet Volume 8.5 fL (7.4-10.4); Monocytes 13 % (0-10); Neutrophil 62 % (42-75); Ovalocytes SLIGHT = 2-5 cells (100X) (0-1/hpf); Platelet Adequacy Comment Appears Adequate; Platelet Count 302 10x3/uL (130-400); RBC Distribution Width 20.6 % (11.5-14.5); Red Blood Cell (RBC) Count 3.12 mill/uL (4.70-6.10); White Blood Cell (WBC) Count 17.7 10x3/uL (4.8-10.8)
[2024-05-11] MEDS: pyridOXINE 50 MG (B6) TAB PO SCH (08:17)
[2024-05-11] MEDS: Furosemide 40 MG TAB PO SCH (08:17)
[2024-05-11] MEDS: Escitalopram Oxalate 10 mg Tablet PO SCH (08:17)
[2024-05-11] MEDS: Aspirin 81 mg Enteric Coated Tablet PO SCH (08:17)
[2024-05-11] MEDS: Carvedilol 3.125 MG TAB PO SCH (08:18)
[2024-05-11] MEDS: Enoxaparin 40 MG (0.4 mL) SYRINGE SC SCH (08:24)
[2024-05-11] MEDS: Potassium Chloride 20 MEQ TAB PO SCH (08:25)
[2024-05-11] MEDS: Ketorolac Tromethamine 30 MG (1 mL) VIAL IVP PRN (12:00)
[2024-05-11] MEDS ORDERED: Acetaminophen 500 MG TAB PO PRN (15:38)
[2024-05-11] MEDS: traMADol HCl 50 MG TAB PO PRN (16:36)
[2024-05-11] MEDS: Acetaminophen 500 MG TAB PO SCH (18:02)
[2024-05-12] MEDS: Ferrous Gluconate 324 MG TAB PO SCH (09:19)
[2024-05-12] MEDS: Sucralfate 1 GM TAB PO SCH (11:50)
[2024-05-12] MEDS: traMADol HCl 50 MG TAB PO PRN (13:12)
[2024-05-12] MEDS: Tamsulosin HCl 0.4 MG CAP PO SCH (17:33)
[2024-05-13] MEDS: Acetaminophen 500 MG TAB PO PRN (20:15)
[2024-05-14 06:35] LABS: Band 1 % (5-11); Eosinophils 1 % (0-10); Hematocrit 32.4 % (42.0-52.0); Hemoglobin 9.5 g/dL (14.0-18.0); Lymphocytes 23 % (21-51); MDiff Complete? YES; Mean Corpuscular HGB CONC 29.5 g/dL (32.0-36.0); Mean Corpuscular Hemoglobin 31.2 pg (27.0-31.0); Mean Corpuscular Volume 105.7 fl (78.0-98.0); Mean Platelet Volume 9.5 fL (7.4-10.4); Monocytes 15 % (0-10); Neutrophil 60 % (42-75); Platelet Count 239 10x3/uL (130-400); RBC Distribution Width 20.8 % (11.5-14.5); Red Blood Cell (RBC) Count 3.06 mill/uL (4.70-6.10); White Blood Cell (WBC) Count 16.9 10x3/uL (4.8-10.8)
[2024-05-14 06:46] LABS: Anion Gap 12 mmol/L (10-20); BUN (Urea Nitrogen) 19 mg/dL (8.4-25.7); Calc. Creatinine Clearance 58 mL/min (70-130); Calcium 8.1 mg/dL (7.8-10.44); Carbon Dioxide 26 mmol/L (23-31); Chloride 105 mmol/L (98-107); Estimated GFR 87; Glucose 107 mg/dL (83-110); Potassium 3.3 mmol/L (3.5-5.1); Sodium 140 mmol/L (136-145)
[2024-05-14] MEDS: Furosemide 20 MG TAB PO SCH (09:38)
[2024-05-14] MEDS: Ondansetron ODT 4 MG TAB PO PRN (18:03)
[2024-05-15] MEDS: Furosemide 40 MG TAB PO SCH (08:03)
[2024-05-15] MEDS: Potassium Chloride 20 MEQ TAB PO SCH (08:04)
[2024-05-15] MEDS: fentaNYL 12 mcg Patch TD SCH (16:19)
[2024-05-15] MEDS: Midodrine HCl 5 MG TAB PO SCH (21:36)
[2024-05-16] MEDS: Lansoprazole 3 MG/ML ORAL SUSPENSION PO SCH (08:38)
[2024-05-16] MEDS: Potassium Bicarbonate/Cit Ac 20 MEQ TAB PO SCH (08:40)
[2024-05-16] MEDS: Aspirin Chewable 81 MG TAB PO SCH (08:40)
[2024-05-16] MEDS: Sucralfate 1 GM TAB PO SCH (16:59)
[2024-05-17 05:37] LABS: Anion Gap 14 mmol/L (10-20); BUN (Urea Nitrogen) 16 mg/dL (8.4-25.7); Calc. Creatinine Clearance 62 mL/min (70-130); Calcium 7.9 mg/dL (7.8-10.44); Carbon Dioxide 27 mmol/L (23-31); Chloride 100 mmol/L (98-107); Estimated GFR 87; Glucose 87 mg/dL (83-110); Potassium 3.6 mmol/L (3.5-5.1); Sodium 137 mmol/L (136-145)
[2024-05-17 05:39] LABS: Anisocytosis SLIGHT = 6-15 cells (100X) (0-5/hpf); Eosinophils 2 % (0-10); Hematocrit 34.6 % (42.0-52.0); Hemoglobin 10.3 g/dL (14.0-18.0); Lymphocytes 27 % (21-51); MDiff Complete? YES; Macrocytosis SLIGHT = 6-15 cells (100X) (0-5/hpf); Mean Corpuscular HGB CONC 29.8 g/dL (32.0-36.0); Mean Corpuscular Hemoglobin 31.3 pg (27.0-31.0); Mean Platelet Volume 8.7 fL (7.4-10.4); Monocytes 7 % (0-10); Neutrophil 64 % (42-75); Platelet Adequacy Comment Appears Adequate; Platelet Count 240 10x3/uL (130-400); RBC Distribution Width 19.9 % (11.5-14.5); Red Blood Cell (RBC) Count 3.29 mill/uL (4.70-6.10); Target Cells SLIGHT = 2-5 cells (100X) (0-1/hpf); White Blood Cell (WBC) Count 21.5 10x3/uL (4.8-10.8)
[2024-05-17] MEDS: Sodium Chloride 0.9% 100 ML ONE (13:45)
[2024-05-18] MEDS: Midodrine HCl 5 MG TAB PO SCH (15:06)
[2024-05-19 05:25] LABS: ALT (SGPT) 27 U/L (8-55); AST (SGOT) 37 U/L (5-34); Albumin 1.6 g/dL (3.4-4.8); Alkaline Phosphatase 124 U/L (40-110); Anion Gap 13 mmol/L (10-20); BUN (Urea Nitrogen) 20 mg/dL (8.4-25.7); Bilirubin, Total 0.4 mg/dL (0.2-1.2); Calc. Creatinine Clearance 66 mL/min (70-130); Calcium 8.1 mg/dL (7.8-10.44); Carbon Dioxide 32 mmol/L (23-31); Chloride 98 mmol/L (98-107); Estimated GFR 89; Globulin 3.7 g/dL (2.4-3.5); Glucose 104 mg/dL (83-110); Potassium 3.8 mmol/L (3.5-5.1); Protein, Total 5.3 g/dL (5.8-8.1); Sodium 139 mmol/L (136-145)
[2024-05-19 05:28] LABS: Eosinophils 1 % (0-10); Hematocrit 32.5 % (42.0-52.0); Hemoglobin 9.7 g/dL (14.0-18.0); Lymphocytes 19 % (21-51); MDiff Complete? YES; Mean Corpuscular HGB CONC 29.9 g/dL (32.0-36.0); Mean Corpuscular Hemoglobin 31.3 pg (27.0-31.0); Mean Corpuscular Volume 104.6 fl (78.0-98.0); Mean Platelet Volume 8.7 fL (7.4-10.4); Monocytes 15 % (0-10); Neutrophil 65 % (42-75); Platelet Count 246 10x3/uL (130-400); RBC Distribution Width 19.8 % (11.5-14.5); White Blood Cell (WBC) Count 21.1 10x3/uL (4.8-10.8)
[2024-05-19] MEDS: Furosemide 20 MG TAB PO SCH (08:40)
[2024-05-22 07:18] LABS: Hematocrit 28.7 % (42.0-52.0); Hemoglobin 8.8 g/dL (14.0-18.0); Mean Corpuscular HGB CONC 30.1 g/dL (32.0-36.0); Mean Corpuscular Hemoglobin 31.8 pg (27.0-31.0); Mean Corpuscular Volume 103.5 fl (78.0-98.0); Mean Platelet Volume 7.8 fL (7.4-10.4); Platelet Count 261 10x3/uL (130-400); RBC Distribution Width 18.8 % (11.5-14.5); Red Blood Cell (RBC) Count 2.83 mill/uL (4.70-6.10)
[2024-05-22 07:24] LABS: Anisocytosis SLIGHT = 6-15 cells (100X) (0-5/hpf); Band 4 % (5-11); Lymphocytes 22 % (21-51); MDiff Complete? YES; Macrocytosis SLIGHT = 6-15 cells (100X) (0-5/hpf); Manual Diff?? YES; Monocytes 7 % (0-10); Neutrophil 67 % (42-75)
[2024-05-22 07:25] LABS: Platelet Adequacy Comment Appears Adequate
[2024-05-22] MEDS ORDERED: Iopamidol 370 76% 100 ML VIAL ONE (09:00)
[2024-05-22 12:15] LABS: Bilirubin Negative (Negative); Blood, Urine Negative (Negative); Glucose, Urine (Dipstick) Negative (Negative); Ketone, Urine Trace mg/dL (Negative); Leukocyte Negative (Negative); Nitrite Negative (Negative); Protein, Urine (Dipstick) 30 mg/dL (Neg-Trace); Specific Gravity, Urine 1.015 (1.005-1.030); Urobilinogen 0.2 mg/dL (Less than 2); pH, Urine 7.5 (5.0-9.0)
[2024-05-22 12:16] LABS: Bacteria/HPF Rare-Few HPF (None Seen); Calcium Oxalate Crystals Rare HPF (None Seen); Clarity Hazy (Clear); RBC/HPF 0-3 HPF (0-3); Squamous Epithelial 0-3 HPF (0-3); WBC/HPF 0-3 HPF (0-3)
[2024-05-22] MEDS: Meropenem 1 GM in Sodium Chloride 0.9% 100 ML IVPB SCH ×2 (13:24→20:51)
[2024-05-22] MEDS: Ondansetron PF 4 MG/2 ML Vial IVP PRN (15:00)
[2024-05-22] MEDS: Sucralfate 1 GM TAB PO SCH (17:23)
[2024-05-26] MEDS: traMADol HCl 50 MG TAB PO SCH (00:55)
[2024-05-26 08:46] LABS: #Basophils 0.6 thou/uL (0.0-0.2); #Eosinphils 0.3 thou/uL (0.0-0.7); #Monocytes 2.7 thou/uL (0.11-0.59); #Neutrophils 21.1 thou/uL (1.40-6.50); %Basophils 2.1 % (0.0-1.0); %Lymphocytes 16.8 % (21.0-51.0); %Monocytes 8.9 % (0.0-10.0); %Neutrophils 71.2 % (42.0-75.0); Hemoglobin 10.2 g/dL (14.0-18.0); Mean Corpuscular Hemoglobin 31.2 pg (27.0-31.0); Mean Corpuscular Volume 103.8 fl (78.0-98.0); Mean Platelet Volume 6.8 fL (7.4-10.4); Platelet Count 410 10x3/uL (130-400); RBC Distribution Width 19.5 % (11.5-14.5); Red Blood Cell (RBC) Count 3.27 mill/uL (4.70-6.10); White Blood Cell (WBC) Count 29.6 10x3/uL (4.8-10.8)
[2024-05-26] MEDS ORDERED: Enoxaparin 40 MG (0.4 mL) SYRINGE SC SCH (09:00)
[2024-05-26] MEDS ORDERED: Aspirin 81 mg Enteric Coated Tablet PO SCH (09:00)
[2024-05-26 09:03] LABS: Anisocytosis SLIGHT = 6-15 cells (100X) (0-5/hpf); Macrocytosis SLIGHT = 6-15 cells (100X) (0-5/hpf); Platelet Adequacy Comment Appears Adequate
[2024-05-26] MEDS: Enoxaparin 40 MG (0.4 mL) SYRINGE SC SCH (09:03)
[2024-05-26] MEDS: Aspirin 81 mg Enteric Coated Tablet PO SCH (09:03)
[2024-05-26] MEDS: Polyethylene Glycol 3350 17 GM Packet PER TUBE SCH (21:40)
[2024-05-26] MEDS: Acetaminophen 500 MG TAB PO PRN (21:44)
[2024-05-27] MEDS: Polyethylene Glycol 3350 17 GM Packet PO SCH (21:45)
[2024-05-29 07:06] LABS: Anion Gap 11 mmol/L (10-20); BUN (Urea Nitrogen) 14 mg/dL (8.4-25.7); Calc. Creatinine Clearance 75 mL/min (70-130); Calcium 8.4 mg/dL (7.8-10.44); Carbon Dioxide 28 mmol/L (23-31); Chloride 96 mmol/L (98-107); Estimated GFR 93; Glucose 103 mg/dL (83-110); Potassium 3.8 mmol/L (3.5-5.1); Sodium 131 mmol/L (136-145)
[2024-05-29 07:23] LABS: Anisocytosis MARKED = >30 cells (100X) (0-5/hpf); Hematocrit 29.2 % (42.0-52.0); Hemoglobin 8.7 g/dL (14.0-18.0); Hypochromia MODERATE=16-30 cells (100X) (0-5/hpf); Lymphocytes 1 % (21-51); MDiff Complete? YES; Macrocytosis MODERATE=16-30 cells (100X) (0-5/hpf); Mean Corpuscular HGB CONC 29.9 g/dL (32.0-36.0); Mean Corpuscular Hemoglobin 30.8 pg (27.0-31.0); Mean Corpuscular Volume 102.8 fl (78.0-98.0); Mean Platelet Volume 6.9 fL (7.4-10.4); Monocytes 9 % (0-10); Neutrophil 87 % (42-75); Platelet Adequacy Comment Appears Adequate; Platelet Count 382 10x3/uL (130-400); Poikilocytosis SLIGHT = 6-15 cells (100X) (0-5/hpf); RBC Distribution Width 18.9 % (11.5-14.5); Red Blood Cell (RBC) Count 2.84 mill/uL (4.70-6.10); White Blood Cell (WBC) Count 30.2 10x3/uL (4.8-10.8)
[2024-05-29] MEDS: Fluconazole 100 MG TAB PO SCH ×2 (09:22→15:06)
[2024-05-29] MEDS: Furosemide 40 MG TAB PO SCH (09:22)
[2024-05-29] MEDS: Senokot S 8.6-50 MG TAB PO PRN (12:12)
[2024-05-29] MEDS: fentaNYL 25 mcg Patch TD SCH (15:23)
[2024-05-29] MEDS ORDERED: fentaNYL 12 mcg Patch TD SCH (16:00)
[2024-05-30] MEDS: traMADol HCl 50 MG TAB PO PRN (04:38)
[2024-05-30] MEDS: Fluconazole 100 MG TAB PO SCH (08:36)
[2024-05-31 20:42] LABS: Eosinophils 2 % (0-10); Hematocrit 31.9 % (42.0-52.0); Hemoglobin 9.7 g/dL (14.0-18.0); Lymphocytes 15 % (21-51); MDiff Complete? YES; Mean Corpuscular HGB CONC 30.3 g/dL (32.0-36.0); Mean Corpuscular Hemoglobin 31.4 pg (27.0-31.0); Mean Corpuscular Volume 103.7 fl (78.0-98.0); Mean Platelet Volume 7.3 fL (7.4-10.4); Monocytes 11 % (0-10); Neutrophil 72 % (42-75); Platelet Count 432 10x3/uL (130-400); RBC Distribution Width 18.3 % (11.5-14.5); Red Blood Cell (RBC) Count 3.08 mill/uL (4.70-6.10); White Blood Cell (WBC) Count 29.6 10x3/uL (4.8-10.8)
[2024-05-31 20:58] LABS: ALT (SGPT) 45 U/L (8-55); AST (SGOT) 75 U/L (5-34); Albumin 1.6 g/dL (3.4-4.8); Alkaline Phosphatase 111 U/L (40-110); Anion Gap 14 mmol/L (10-20); BUN (Urea Nitrogen) 16 mg/dL (8.4-25.7); Bilirubin, Total 0.4 mg/dL (0.2-1.2); Calc. Creatinine Clearance 68 mL/min (70-130); Calcium 8.7 mg/dL (7.8-10.44); Carbon Dioxide 29 mmol/L (23-31); Chloride 94 mmol/L (98-107); Estimated GFR 90; Globulin 4.8 g/dL (2.4-3.5); Glucose 118 mg/dL (83-110); Protein, Total 6.4 g/dL (5.8-8.1); Sodium 133 mmol/L (136-145)
[2024-05-31] MEDS: Furosemide 40 MG (4 mL) VIAL SLOW IVP SCH (21:13)
[2024-06-01] MEDS: Furosemide 40 MG (4 mL) VIAL SLOW IVP SCH (09:17)
[2024-06-03] MEDS: Amiodarone 200 MG TAB PO SCH (09:01)
[2024-06-04] MEDS: LevoFLOXacin 500 mg/D5W 500 MG in Premix 1 BAG IVPB SCH (10:40)
[2024-06-04] MEDS: Lidocaine 4% Topical Sol 50 ML BOT TOP SCH (14:21)
[2024-06-05 05:23] LABS: #Basophils 0.4 thou/uL (0.0-0.2); #Eosinphils 0.4 thou/uL (0.0-0.7); #Lymphocytes 5.7 thou/uL (1.20-3.40); #Monocytes 2.9 thou/uL (0.11-0.59); #Neutrophils 13.3 thou/uL (1.40-6.50); %Basophils 1.6 % (0.0-1.0); %Eosinophils 1.7 % (0.0-10.0); %Lymphocytes 25.2 % (21.0-51.0); %Monocytes 12.7 % (0.0-10.0); %Neutrophils 58.9 % (42.0-75.0); Hemoglobin 8.7 g/dL (14.0-18.0); Mean Corpuscular Hemoglobin 31.1 pg (27.0-31.0); Mean Corpuscular Volume 100.3 fl (78.0-98.0); Mean Platelet Volume 6.3 fL (7.4-10.4); Platelet Count 425 10x3/uL (130-400); RBC Distribution Width 17.8 % (11.5-14.5); Red Blood Cell (RBC) Count 2.79 mill/uL (4.70-6.10); White Blood Cell (WBC) Count 22.6 10x3/uL (4.8-10.8)
[2024-06-05 05:35] LABS: ALT (SGPT) 56 U/L (8-55); AST (SGOT) 106 U/L (5-34); Albumin 1.4 g/dL (3.4-4.8); Alkaline Phosphatase 105 U/L (40-110); Anion Gap 12 mmol/L (10-20); BUN (Urea Nitrogen) 19 mg/dL (8.4-25.7); Bilirubin, Total 0.4 mg/dL (0.2-1.2); Calc. Creatinine Clearance 75 mL/min (70-130); Calcium 8.4 mg/dL (7.8-10.44); Carbon Dioxide 34 mmol/L (23-31); Chloride 91 mmol/L (98-107); Estimated GFR 93; Globulin 4.3 g/dL (2.4-3.5); Glucose 88 mg/dL (83-110); Potassium 3.4 mmol/L (3.5-5.1); Protein, Total 5.7 g/dL (5.8-8.1); Sodium 134 mmol/L (136-145)
[2024-06-05] MEDS: Potassium Bicarbonate/Cit Ac 20 MEQ TAB PO SCH (09:01)
[2024-06-05] MEDS: Acetaminophen 500 MG TAB PO PRN (20:54)
[2024-06-08 12:02] LABS: Anisocytosis SLIGHT = 6-15 cells (100X) (0-5/hpf); Eosinophils 3 % (0-10); Hematocrit 34.7 % (42.0-52.0); Hemoglobin 10.8 g/dL (14.0-18.0); Hypochromia SLIGHT = 6-15 cells (100X) (0-5/hpf); MDiff Complete? YES; Macrocytosis SLIGHT = 6-15 cells (100X) (0-5/hpf); Manual Diff?? YES; Mean Corpuscular Hemoglobin 31.6 pg (27.0-31.0); Mean Corpuscular Volume 101.8 fl (78.0-98.0); Mean Platelet Volume 6.6 fL (7.4-10.4); Monocytes 16 % (0-10); Neutrophil 79 % (42-75); Platelet Count 378 10x3/uL (130-400); Poikilocytosis SLIGHT = 6-15 cells (100X) (0-5/hpf); Polychromasia SLIGHT = 2-3 cells (100X) (0-2/hpf); RBC Distribution Width 17.1 % (11.5-14.5); Reactive Lymphocytes 2 % (0-10); Red Blood Cell (RBC) Count 3.41 mill/uL (4.70-6.10); White Blood Cell (WBC) Count 26.6 10x3/uL (4.8-10.8)
[2024-06-08 12:03] LABS: Platelet Adequacy Comment Appears Adequate
[2024-06-08] MEDS: Carvedilol 3.125 MG TAB PO SCH (18:06)
[2024-06-08] MEDS: Furosemide 40 MG TAB PO SCH (18:14)
[2024-06-09 05:17] LABS: Anion Gap 14 mmol/L (10-20); BUN (Urea Nitrogen) 20 mg/dL (8.4-25.7); Calc. Creatinine Clearance 85 mL/min (70-130); Calcium 8.7 mg/dL (7.8-10.44); Carbon Dioxide 33 mmol/L (23-31); Chloride 93 mmol/L (98-107); Estimated GFR 97; Glucose 99 mg/dL (83-110); Potassium 3.7 mmol/L (3.5-5.1); Sodium 136 mmol/L (136-145)
[2024-06-09 07:39] VITALS: BMI 22.4
[2024-06-09] MEDS ORDERED: Furosemide 40 MG (4 mL) VIAL SLOW IVP SCH (09:00)
[2024-06-09] MEDS: Furosemide 40 MG TAB PO SCH (09:25)
[2024-06-09] MEDS: Amiodarone 200 MG TAB PO SCH (09:25)
[2024-06-10] MEDS: Fluconazole 100 MG TAB PO SCH (08:30)
[2024-06-10] MEDS: Furosemide 20 MG TAB PO SCH (10:16)
[2024-06-11] MEDS: Furosemide 20 MG TAB PO SCH (08:12)
[2024-06-12] MEDS: Furosemide 40 MG (4 mL) VIAL SLOW IVP SCH (09:30)
[2024-06-12] MEDS: Ipratropium/Albuterol 3 ML NEB EZPAP SCH (09:31)
[2024-06-12] MEDS: Ipratropium/Albuterol 3 ML NEB NEB SCH (09:40)
[2024-06-12] MEDS ORDERED: Ipratropium/Albuterol 3 ML NEB NEB SCH (09:45)
[2024-06-12] MEDS ORDERED: Ipratropium/Albuterol 3 ML NEB EZPAP SCH ×2 (10:00→11:00)
[2024-06-12] MEDS: Sucralfate 1 GM/10 ML UDCUP PO SCH (12:00)
[2024-06-12] MEDS ORDERED: Ondansetron PF 4 MG/2 ML Vial IVP PRN (13:59)
[2024-06-12] MEDS: fentaNYL 50 mcg/mL 1 mL Vial SLOW IVP PRN (15:23)
[2024-06-12] MEDS ORDERED: Acetaminophen 650 MG Suppository PR PRN (17:27)
[2024-06-12] MEDS: HYDROmorphone 0.5 MG/0.5 ML SYRINGE SLOW IVP PRN (17:40)
[2024-06-12 17:51] LABS: Bilirubin Negative (Negative); Blood, Urine Negative (Negative); Clarity Clear (Clear); Glucose, Urine (Dipstick) Negative (Negative); Ketone, Urine Negative (Negative); Leukocyte Negative (Negative); Nitrite Negative (Negative); Protein, Urine (Dipstick) Negative (Neg-Trace); pH, Urine 7.5 (5.0-9.0)
[2024-06-12 17:59] LABS: CAUTI Indications for Culture Urological Procedure; RBC/HPF None Seen HPF (0-3); Squamous Epithelial None Seen HPF (0-3); Transitional Epithelial 0-3 HPF (None Seen); WBC/HPF 0-3 HPF (0-3)
[2024-06-12 18:00] LABS: Bacteria/HPF None Seen HPF (None Seen); Mucous/LPF Rare LPF (<2+)
[2024-06-12 18:01] LABS: Urine Culture Reflex Yes Yes
[2024-06-12 19:26] VITALS: BP 114/65; TEMP 97.6
[2024-06-12] MEDS: Scopolamine 1 mg/72 hour Patch TD SCH (19:42)
[2024-06-12] MEDS: Lorazepam 2 MG/ML VIAL SLOW IVP PRN (21:11)
[2024-06-13] MEDS ORDERED: Ferrous Sulfate 300 MG (5 mL) UDCUP PO SCH (08:00)
[2024-06-13] MEDS ORDERED: Aspirin Chewable 81 MG TAB PO SCH (09:00)
[2024-06-13] MEDS ORDERED: fentaNYL 25 mcg Patch TD SCH (16:00)
== END 2024-06-12 23:05 | disposition expired | DRG 947 ==
LOC: MADMS 15:53
PROVIDERS: ADMIT Family Medicine; ATTEND Family Medicine
DX: R53.81 Other malaise (principal); I50.23 Acute on chronic systolic (congestive) heart failure; J69.0 Pneumonitis due to inhalation of food and vomit; K65.2 Spontaneous bacterial peritonitis; I11.0 Hypertensive heart disease with heart failure; E78.5 Hyperlipidemia, unspecified; D64.9 Anemia, unspecified; Z51.5 Encounter for palliative care; Z66 Do not resuscitate; I25.10 Atherosclerotic heart disease of native coronary artery without angina pectoris; R19.8 Other specified symptoms and signs involving the digestive system and abdomen; K80.50 Calculus of bile duct without cholangitis or cholecystitis without obstruction; B37.9 Candidiasis, unspecified; E03.9 Hypothyroidism, unspecified; R13.10 Dysphagia, unspecified; I48.0 Paroxysmal atrial fibrillation; Z88.5 Allergy status to narcotic agent; Z88.1 Allergy status to other antibiotic agents; Z88.8 Allergy status to other drugs, medicaments and biological substances; Z79.890 Hormone replacement therapy; Z79.899 Other long term (current) drug therapy; Z79.82 Long term (current) use of aspirin; Z95.1 Presence of aortocoronary bypass graft; Z98.890 Other specified postprocedural states; Z87.891 Personal history of nicotine dependence
CPT/HCPCS: 36415; 71045; 71260; 74018; 74177; 80048; 80053; 81001; 83880; 85025; 86140; 87040; 87070; 87077; 87086; 87103; 87205; 97602; J1170; J1650; J1885; J1940; J1956; J2060; J2185; J2248; J2405; J3010; J7620; Q0162; Q9967